=== PATIENT | male | born 1960 | race Caucasian/White ===

== ENCOUNTER → 2023-12-23 | Outpatient (CLI) | payer OTHER, SELFPAY ==
--- NOTE | 2023-12-23 | PROSBIL_PTH ---
PATHOLOGY RESULTS PATIENT: RANDALL HENDERSON LOC: [facility]#:[id number] AGE/SX: 63/M ROOM: RE12/23/[address]: Dr. Matthew Garcia MD : 1960 BED: DIS: 12/23/2023 SPEC #: [id number] RECD: 12/24/23 07:25 STATUS: VINCENZO ANN MARIE #: [id number] ZACK: 12/23/23 00:[address]: Matthew Garcia DEPT: SURGICAL PATHOLOGY RECD BY: Boone Martinez ENTERED: 12/24/23 07:26 SP TYPE: PROST BX GOKUL DR: Tiffanie Granda PA-C Tissues: PROSTATE RIGHT PROSTATE RIGHT PROSTATE RIGHT PROSTATE LEFT PROSTATE LEFT PROSTATE LEFT Procedures: PROSTATE BX HEADER OPERATION: Prostate biopsy PRE-OP DIAGNOSIS: Elevated PSA TISSUE SUBMITTED: A - Right apex, B - Right mid, C - Right base, D - Left apex, E - Left mid, F - Left base MICROSCOPIC DIAGNOSIS A. Right prostate, apex, core biopsy: Prostatic tissue, negative for malignancy. B. Right prostate, mid, core biopsy: Prostatic tissue, negative for malignancy. C. Right prostate, base, core biopsy: Prostatic tissue, negative for malignancy. D. Left prostate, apex, core biopsy: Prostatic adenocarcinoma. Gael grade: 4+4=8 Number of cores involved: 1/2 Proportion of tissue involved: ~20% Perineural invasion: Not identified. Greatest tumor length: 0.4 cm Focal high-grade prostatic intraepithelial neoplasia (HGPIN). E. Left prostate, mid, core biopsy: Prostatic tissue, negative for malignancy. Focal basal cell hyperplasia. F. Left prostate, base, core biopsy: Focal atypical small acinar proliferation (VARGHESE). Focal high-grade prostatic intraepithelial neoplasia (HGPIN). See comment. SJ:rg 12/25/2023 COMMENT F. Immunohistochemistry ([id number]) supports the above diagnosis. This case has been reviewed in consultation with Dr. Rodriguez who concurs with the above diagnosis. MICROSCOPIC DESCRIPTION Slides are reviewed. GROSS DESCRIPTION A - Received is one container designated prostate, right apex. The specimen consists of two elongated fragments of light santos-white soft tissue each measuring 1.2 cm in length and 0.1 cm in diameter. The specimen is totally submitted in one cassette. B - Received is one container designated prostate, right mid. The specimen consists of two elongated fragments of light santos-white soft tissue each measuring 1.2 cm in length and 0.1 cm in diameter. The specimen is totally submitted in one cassette. C - Received is one container designated prostate, right base. The specimen consists of two elongated fragments of light santos-white soft tissue each measuring 1.2 cm in length and 0.1 cm in diameter. The specimen is totally submitted in one cassette. D - Received is one container designated prostate, left apex. The specimen consists of two elongated fragments of light santos-white soft tissue each measuring 1.2 cm in length and 0.1 cm in diameter. The specimen is totally submitted in one cassette. E - Received is one container designated prostate, left mid. The specimen consists of two elongated fragments of light santos-white soft tissue measuring 0.6 and 1.8 cm in length and 0.1 cm in diameter. The specimen is totally submitted in one cassette. F - Received is one container designated prostate, left base. The specimen consists of two elongated fragments of light santos-white soft tissue each measuring 1.2 cm in length and 0.1 cm in diameter. The specimen is totally submitted in one cassette. / SJ:rg 12/24/2023 TC:0 CPT: 13096 x6
--- NOTE | 2023-12-23 | IMM_PTH ---
PATHOLOGY RESULTS PATIENT: RANDALL HENDERSON LOC: [facility] U#:[id number] AGE/SX: 63/M ROOM: RE12/23/[address]: Dr. Matthew Garcia MD : 1960 BED: DIS: 12/23/2023 SPEC #: [id number] RECD: 12/25/23 13:48 STATUS: VINCENZO REQ #: [id number] ZACK: 12/23/23 00:[address]: Matthew Garcia DEPT: IMMUNOHISTOCHEMISTRY RECD BY: Josi Enrique ENTERED: 12/25/23 13:49 SP TYPE: IMMUNO OTHR DR: Tiffanie Granda PA-C Tissues: PROSTATE LEFT Procedures: P40 (add) 34BE12 (initial) PHYSICIAN & INSTITUTION [place] [id number] SPECIMEN INFORMATION: Tissue Source: F - Left prostate, base Clinical Info: Elevated PSA Specimen Number: [id number] F CPT code: 79558, 39280 METHODOLOGY: Deparaffinized sections of prefer/formalin-fixed tissue or PAP/DQ stained slides are incubated with monoclonal/polyclonal antibodies/oligonucleotide probes. Localization is made via biotin free immunoperoxidase method. Appropriate controls are performed and reacted as expected. Results on target cell population are indicated in the following table: RESULTS: ANTIBODY / CLONE RESULT Block F 34BE12 (34BE12) negative * P40 (BC28) negative * *?Positive in the area of focal high-grade prostatic intraepithelial neoplasia (HGPIN). These tests were developed and their performance characteristics determined by [facility]. They may not have been cleared or approved by the U.S. Food and Drug Administration. The FDA has determined that such clearance or approval is not necessary. The above immunohistochemical/dualISH markers are ordered and reviewed by the Pathologist. INTERPRETATION: B. Left prostate, base, core biopsy: Focal atypical small acinar proliferation (VARGHESE). Focal high-grade prostatic intraepithelial neoplasia (HGPIN). SJ:kane 12/26/2023
== END | disposition home or self-care (01) ==
LOC: LAB 16:30 → LABSPEC 16:34
PROVIDERS: PCP Family Medicine; Referring Provider Urology; Visit Provider Urology
DX: R97.20 Elevated prostate specific antigen [PSA] (principal)
CPT/HCPCS: 88305; 88341; 88342; G0416

== ENCOUNTER 2024-01-22 08:31 | Day surgery (SDC) | payer OTHER, SELFPAY ==
--- OUTSIDE RECORDS SUMMARY | 2024-01-22 08:54 | XMS RPT_ITS | CCD ---
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 Name Role Phone HILLS, THERON Attending Unavailable HILLS, THERON Consulting Unavailable HILLS, THERON Primary Care Unavailable HILLS, THERON Admitting Unavailable PROVIDER, UNKNOWN Consulting Unavailable HOLCOMB, FANTASMA Attending Unavailable HOLCOMB, FANTASMA Primary Care Unavailable HOLCOMB, FANTASMA Admitting Unavailable HILLS, THERON Consulting Unavailable PROVIDER, UNKNOWN Consulting Unavailable [place], THERON Attending Unavailable [place], THERON Consulting Unavailable [place], THERON Admitting Unavailable [place], THERON Primary Care Unavailable PROVIDER, UNKNOWN Consulting Unavailable [place], THERON Attending Unavailable [place], THERON Consulting Unavailable [place], THERON Primary Care Unavailable [place], THERON Admitting Unavailable PROVIDER, UNKNOWN Consulting Unavailable [place], THERON Referring Unavailable ELSA SALDANA DO Attending Unavailable LES, ELSA DO Primary Care Unavailable ELSA SALDANA DO Admitting Unavailable HILLS, THERON Consulting Unavailable PROVIDER, UNKNOWN Consulting Unavailable HOLCOMB, FANTASMA Attending Unavailable HOLCOMB, FANTASMA Primary Care Unavailable HILLS, THERON Consulting Unavailable HOLCOMB, FANTASMA Admitting Unavailable PROVIDER, UNKNOWN Consulting Unavailable HOLCOMB, FANTASMA Admitting Unavailable HOLCOMB, FANTASMA Attending Unavailable HOLCOMB, FANTASMA Primary Care Unavailable HILLS, THERON Consulting Unavailable PROVIDER, UNKNOWN Consulting Unavailable HILLS, THERON Attending Unavailable HILLS, THERON Consulting Unavailable HILLS, THERON Primary Care Unavailable HILLS, THERON Admitting Unavailable PROVIDER, UNKNOWN Consulting Unavailable HILLS, THERON Attending Unavailable HILLS, THERON Consulting Unavailable HILLS, THERON Primary Care Unavailable HILLS, THERON Admitting Unavailable PROVIDER, UNKNOWN Consulting Unavailable HILLS, THERON Attending Unavailable HILLS, THERON Consulting Unavailable HILLS, THERON Primary Care Unavailable HILLS, THERON Admitting Unavailable PROVIDER, UNKNOWN Consulting Unavailable Allergies Allergy Classification Reported Allergen(s) Allergy Type Date of Onset Reaction(s) Facility (1 source) Acetaminophen / HYDROcodone Drug Allergy [facility] Repository (1 source) Sulfamethoxazole / Trimethoprim Drug Allergy [facility] Repository Problems Active Problems Problem Classification Problem Date Documented Da te Episodic/Chronic Cancer of prostate (3 sources) Malignant neoplasm of prostate; Translations: [Malignant neoplasm of prostate] Onset: 12-28-2023 Chronic Past or Other Problems Problem Classification Problem Date Documented Da te Episodic/Chronic Other screening for suspected conditions (not mental disorders or infectious disease) (6 sources) Elevated prostate specific antigen [PSA]; Translations: [Encounter for screening for malignant neoplasm of prostate] Onset: 09-29-2023 Episodic Other skin disorders (1 source) Other skin changes; Translations: [Other skin changes] Onset: 01-10-2023 Episodic Skin and subcutaneous tissue infections (1 source) Local infection of the skin and subcutaneous tissue, unspecified; Translations: [Local infection of the skin and subcutaneous tissue, unspecified] Onset: 01-10-2023 Episodic Results Test Name Value Interpretation Reference Range Facil ity Encounters Encounter Date Encounter Type Care Provider Facility Start: 01-03-2024 End: 01-03-2024 ambulatory [facility] Start: 12-30-2023 End: 12-31-2023 Emergency department patient visit [facility] Start: 12-28-2023 End: 12-28-2023 ambulatory [facility] Start: 12-27-2023 End: 12-27-2023 ambulatory [facility] Start: 10-06-2023 End: 10-06-2023 ambulatory [facility] Start: 09-29-2023 End: 09-29-2023 [facility] Start: 01-10-2023 End: 01-10-2023 ambulatory [facility] Procedures Date Procedure Procedure Detail Performing Clinician Start: 10-06-2023 PSA screening [facility] Payers Date Payer Category Payer Unknown [id number] 2.16.8 [id number] 1960 Unknown [id number] 2.16.8 [id number] 1960 Unknown [id number] 2.16.8 [id number] 1960 Unknown [id number] 2.16.8 [id number] 1960 Unknown [id number] 2.16.8 [id number] 1960 Unknown [id number] 2.16.8 [id number] 1960 Unknown [id number] 2.16.8 [id number] 1960 Unknown [id number] 2.16.8 [id number] 1960 Unknown [id number] 2.16.84 [id number] Private Health Insurance [id number] Clinical Note 01-21-2021 Note Date & Type Note Facility 01-21-2021 Note . MICRO - Microbiology PROCEDURE: Blood Culture (bacterial) [*1] SOURCE: Blood BODY SITE: COLLECTED DATE/TIME: 01/16/2021 00:20 EST RECEIVED DATE/TIME: 01/16/2021 06:45 EST START DATE/TIME: 01/16/2021 06:46 EST FREE TEXT SOURCE: FINAL REPORTS Final Report [] Verified Date/Time/Personnel: 01/21/2021 06:59 EST Blood Culture: No Growth at 5 days. PRELIMINARY REPORTS Preliminary Report [] Verified Date/Time/Personnel: 01/16/2021 07:59 EST Culture has been received in lab and is no growth to date. Routine cultures are held for 5 days. Performing Locations *1: This test was performed at: [facility], [address] [place] [address], [facility] , [facility] ([place]) Clinical Note 01-21-2021 Note Date & Type Note Facility 01-21-2021 Note . MICRO - Microbiology PROCEDURE: Blood Culture (bacterial) [*1] SOURCE: Blood BODY SITE: COLLECTED DATE/TIME: 01/16/2021 00:16 EST RECEIVED DATE/TIME: 01/16/2021 06:45 EST START DATE/TIME: 01/16/2021 06:46 EST FREE TEXT SOURCE: FINAL REPORTS Final Report [] Verified Date/Time/Personnel: 01/21/2021 06:59 EST Blood Culture: No Growth at 5 days. PRELIMINARY REPORTS Preliminary Report [] Verified Date/Time/Personnel: 01/16/2021 07:59 EST Culture has been received in lab and is no growth to date. Routine cultures are held for 5 days. Performing Locations *1: This test was performed at: [address], [address] [place] [address] ([place]) Clinical Note 01-18-2021 Note Date & Type Note Facility 01-18-2021 Note . MICRO - Microbiology PROCEDURE: Urine Culture [*1] SOURCE: Urine, Clean Catch BODY SITE: COLLECTED DATE/TIME: 01/16/2021 01:04 EST RECEIVED DATE/TIME: 01/16/2021 07:50 EST START DATE/TIME: 01/16/2021 07:50 EST FREE TEXT SOURCE: FINAL REPORTS Final Report [] Verified Date/Time/Personnel: 01/18/2021 07:51 EST No growth at 48 hours. PRELIMINARY REPORTS Preliminary Report [] Verified Date/Time/Personnel: 01/17/2021 11:00 EST No growth to date Performing Locations *1: This test was performed at: [address], [address] [place] [address] ([place]) Summary Purpose Family History No Family History Records FoundNo Family History Records FoundNo Family History Records FoundNo Family History Records Found Advance Directives No Advanced Directives Records FoundNo Advanced Directives Records FoundNo Advanced Directives Records FoundNo Advanced Directives Records Found Additional Source Comments (unrecognized sect ion and content) No Status Records FoundNo Status Records FoundNo Status Records FoundNo Status Records Found INFORMATION SOURCE (unrecogn ized section and content) DATE CREATED AUTHOR AUTHOR'S ORVILLE ATION 03/12/2021 [facility] ([place]) DATE CREATED AUTHOR AUTHOR'S ORVILLE ATION 03/14/2021 [facility] DATE CREATED AUTHOR AUTHOR'S ORVILLE ATION 01/08/[address] [facility] FOR RECORDS PERTAINING TO PATIENTS WHO ARE OR HAVE BEEN ENROLLED IN A CHEMICAL DEPENDENCY/SUBSTANCEABUSE PROGRAM, SOME INFORMATION MAY BE OMITTED. This clinical summary was aggregated from multiple sources. Caution should be exercised in using it in the provision of clinical care. This summary normalizes information from multiple sources, and as a consequence, information in this document may materially change the coding, format and clinical context of patient data. In addition, data may be omitted in some cases. CLINICAL DECISIONS SHOULD BE BASED ON THE PRIMARY CLINICAL RECORDS. [facility] [employer] [facility]. provides no warranty or guarantee of the accuracy or completeness of information in this document.
--- NOTE | 2024-01-22 09:01 | DCINST_ITS ---
Discharge Instructions Diet Discharge Diet: No restrictions Activity Discharge Activity: Return to Normal Activity and May Not Drive (while taking narcotic pain medications.) Dressing / Incision Call your doctor if you observe: Fever of 101 or Higher Follow Up Care Please Follow Up With: Matthew Garcia MD When: Call [phone] for an appointment Test Results: Test results from this visit will be discussed in further detail at your follow- up appointment, if applicable. Discharge Plan Admission Primary Reason for Your Visit: Gold markers and spacer gel Attending Provider: Matthew Garcia Primary Care Provider: Tiffanie Granda Discharge Orders/Prescriptions Prescriptions: New ciprofloxacin HCl [Cipro] 500 mg tablet 500 mg PO BID Qty: 10 0RF Continued hydrochlorothiazide 12.5 mg tablet 12.5 mg PO QHS albuterol sulfate 90 mcg/actuation HFA aerosol inhaler 2 puff inhalation Q4-6H PRN (Reason: shortness of breath or wheezing) aspirin [Adult Aspirin Regimen] 81 mg tablet,delayed release (DR/EC) 81 mg PO DAILY Fish Oil 300-500 mg capsule 1 cap PO DAILY metoprolol tartrate 25 mg tablet 25 mg PO QHS diclofenac potassium 50 mg tablet 50 mg PO QHS multivitamin Tablet 1 tab PO DAILY potassium 99 mg tablet 99 mg PO DAILY fluticasone propion-salmeterol 250-50 mcg/dose blister with device 1 inh INHALATION QHS Patient Comments: INHALE ONE PUFF TWICE DAILY omeprazole 20 mg capsule,delayed release(DR/EC) 20 mg PO QHS epinephrine 0.3 mg/0.3 mL auto-injector 0.3 ml subcut PRN PRN (Reason: anaphylaxis) Patient Comments: INJECT DIRECTED Referrals / Follow Up: Matthew Garcia MD [Med Staff - Active Staff] - Tiffanie Granda PA-C [Primary Care Provider] - Disposition Disposition (needs filled in before D/C Order can be placed): Home, Self Care
--- NOTE | 2024-01-22 09:01 | PCM.HP.STD ---
HPI - General General Date of Service: 01/22/24 Chief Complaint: Prostate cancer HPI Ania HENDERSON, is a 63 M who presents for placement of gold markers and spacer gel for prostate cancer plans to have radiation treatment for high risk disease [facility] Medical History (Updated 01/20/24 @ 15:22 by Leena De) Alcohol use Arthritis Asthma Cardiology follow-up encounter Chronic cough Elevated PSA Gastric reflux History of edema History of steroid therapy History of stress test HTN (hypertension) Leg cramps Prostate cancer Smoker Wears glasses Home Medications albuterol sulfate 90 mcg/actuation aerosol inhaler 2 puff inhalation Q4-6H PRN shortness of breath or wheezing 01/08/24 [History Last Taken Unknown] aspirin 81 mg tablet,delayed release (Adult Aspirin Regimen) 81 mg PO DAILY 01/08/24 [History Last Taken 01/13/24] diclofenac potassium 50 mg tablet 50 mg PO QHS 01/08/24 [History Last Taken Unknown] hydrochlorothiazide 12.5 mg tablet 12.5 mg PO QHS 01/08/24 [History Last Taken Unknown] metoprolol tartrate 25 mg tablet 25 mg PO QHS 01/08/24 [History Last Taken Unknown] omega-3 fatty acids-fish oil 300 mg-500 mg capsule (Fish Oil) 1 cap PO DAILY 01/08/24 [History Last Taken 01/13/24] multivitamin 1 tab PO DAILY 01/13/24 [History Last Taken Unknown] epinephrine 0.3 mg/0.3 mL injection, auto-injector 0.3 ml subcut PRN PRN anaphylaxis 01/20/24 [History Last Taken Unknown] fluticasone 250 mcg-salmeterol 50 mcg/dose blistr powdr for inhalation 1 inh inhalation QHS 01/20/24 [History Last Taken Unknown] omeprazole 20 mg capsule,delayed release 20 mg PO QHS 01/20/24 [History Last Taken Unknown] potassium 99 mg tablet 99 mg PO DAILY 01/20/24 [History Last Taken Unknown] ciprofloxacin HCl 500 mg tablet (Cipro) 500 mg PO BID #10 tabs 01/22/24 [Rx Last Taken Unknown] Allergy/AdvReac Type Severity Reaction Status Date / Time lisinopril Allergy Severe Angioedema Unverified 01/20/24 15:07 trimethoprim [From Bactrim] Allergy Unknown Other Unverified 01/20/24 15:07 acetaminophen [From Vicodin] AdvReac Intermediate Upset Unverified 01/20/24 15:07 Stomach sulfamethoxazole AdvReac Intermediate Other Verified 01/20/24 15:07 [From Bactrim] hydrocodone [From Vicodin] AdvReac Mild Upset Unverified 01/20/24 15:07 Stomach Surgical History (Updated 01/20/24 @ 15:22 by Leena De) History of cholecystectomy Hx of colonoscopy Hx of prostate biopsy Hx of tonsillectomy Social History Smoking Status: Current every day smoker tobacco type: cigarettes alcohol intake: current substance use type: does not use caffeine: Yes
[2024-01-22 09:04] VITALS: BP 167/98; PULSE 99; RESP 18; TEMP 37.1; O2SAT 98; BMI 32.2
[2024-01-22] MEDS: Lactated Ringers 1,000 ML 15 ML IV (09:15)
[2024-01-22] MEDS: Cefazolin 2 GM in 0.9% Normal Saline (100mL Bag) 100 ML IV (10:44)
--- NOTE | 2024-01-22 10:50 | OP.PCM_ITS ---
Report of Operation Date of Procedure: 01/22/24 Pre-Operative Diagnosis: Prostate cancer Post-Operative Diagnosis: The same Surgery/Procedure Performed:: Placement of gold markers and spacer gel Description of Surgical Findings:: In the preoperative area I reviewed with the patient how the procedure is done we talked about the risk of the procedure including the risk of infection, bleeding, migration of the spacer gel, the patient is planning to have radiation to the prostate he understands that the spacer gel has demonstrated benefit in reducing the risk of toxicity from the ration radiation to the rectum but there is no guarantees that this spacer gel will prevent any serious complications or toxicity to the rectum or bowels. After reviewing this with the patient and his family organ to proceed with placement of a spacer gel matrix. Patient was taken back to the operating room after smooth induction of anesthesia he was placed supine on the table. The genitals and perineum were prepped and draped in usual sterile fashion. I then introduced a biplanar ultrasound probe into the rectum and performed ultrasonography and identified the Denonvilliers' fascia the prostate mid base and apex and seminal vesicles. The spacer gel mix was then prepared on the back table per manufactures instruction. Under ultrasound guidance in the midline perineum a bevel needle down we advanced through the perineum below the prostate into the space of Denonvilliers' fascia. This space which could be identified by ultrasound with a bright white layer between the prostate and the rectum. I then injected a puff of normal saline to identify the space further. After I confirmed that the needle was in the correct space in the mid prostate and the space of Denonvilliers' fascia between the rectum and the prostate. Then over the course of 15 seconds the gel matrix was injected slowly there was nice separation between the prostate and the rectum at the gel matrix was injected. The penis and testicles were prepped and draped in usual sterile fashion, ultrasound probe was placed into the rectum and biplanar ultrasound was performed on the prostate. Identified the base mid and apex of the prostate identified the transition zone prostate. Then using a needle the first stone layout marker was placed into the right base of the prostate, the second stone layout marker was placed in the left base of the prostate, and the third core marker was placed in the right apex of the prostate after all 3 markers were placed the placement of the markers were confirmed by ultrasonography.The position of the gel matrix was confirmed by ultrasound. Then the injection needle was removed intact. Patient's perineum was cleaned patient was taken out of stirrups and then taken back to the PACU in good condition. Type of Anesthesia: General Admit VTE Documentation VTE Present on Admission: No VTE Mechan Device Prophylaxis: SCD's VTE Pharm Prophylaxis ordered?: No
[2024-01-22 11:10] VITALS: BP 156/94; BP 167/98; PULSE 75; RESP 16; TEMP 36.7; O2SAT 97
[2024-01-22 11:15] VITALS: BP 156/94; BP 167/98; PULSE 75; RESP 16; O2SAT 95
[2024-01-22 11:20] VITALS: BP 156/87; BP 167/98; PULSE 74; RESP 16; TEMP 36.7; O2SAT 94
[2024-01-22 11:41] VITALS: BP 167/98
== END 2024-01-22 11:46 | disposition home or self-care (01) ==
LOC: SDC 08:33 → AC 08:33
PROVIDERS: PCP Family Medicine; Referring Provider Urology; Visit Provider Urology
PROC: (CPT 55874; principal; 2024-01-22 10:35)
DX: C61 Malignant neoplasm of prostate (principal); F17.210 Nicotine dependence, cigarettes, uncomplicated; I10 Essential (primary) hypertension; J45.909 Unspecified asthma, uncomplicated; K21.9 Gastro-esophageal reflux disease without esophagitis; Z79.899 Other long term (current) drug therapy; Z79.82 Long term (current) use of aspirin
CPT/HCPCS: 55876; 55874; 00400; J7120; J2405

== ENCOUNTER → 2024-01-28 | Outpatient (CLI) | payer OTHER, SELFPAY ==
--- NOTE | 2024-01-28 07:31 | MRI_ITS ---
STUDY: MR PROSTATE GLAND/ PELVIS WITH T WITHOUT CONTRAST REASON FOR EXAM: Male, 63 years old. high risk prostate cancer -- eval for disease. Recent placement of prostate markers. TECHNIQUE: Standardized fat and water weighted pulse sequences were obtained in all 3 orthogonal planes, pre-and post contrast administration. IV 20ml clariscan was administered for the contrast portion of the examination. COMPARISON: CT of abdomen and pelvis dated January 28, 2024 Nuclear medicine bone scan dated January 03, 2024 FINDINGS: Prostate gland volume/size: 2.98 x 4.64 x 3.97 cm A 4.40 x 3.75 cm lobular fluid collection is present at the superior and posterior aspect of the prostate gland abutting the undersurface of the seminal vesicles, most likely representing postprocedural fluid collection or a slightly complex fluid collection resulting from extrusion from the prostate gland or sequela from an inflammatory or infectious process from the seminal vesicles or prostate gland. It does not appear to represent an abscess. Anterior fibromuscular stroma: Normal Peripheral zone: Diffusely heterogeneous. Low signal ovoid nodules in the inferior aspects of both the right and left peripheral zones has corresponding dark signal on ADC map and bright signal on the diffusion-weighted map suggesting malignancy. On the postcontrast study there is mild enhancement of the nodule in the medial inferior aspect and right side of the peripheral zone but none demonstrated on the left. Central zone: Diffusely heterogeneous and nodular and cystic. Diffuse enhancement on the postcontrast portion of the study. Prostatic hyperplasia favored. Transitional zone: Diffusely heterogeneous and nodular and cystic. Diffuse enhancement on the postcontrast portion of the study. Prostatic hyperplasia favored. Prostate capsule: Intact Seminal vesicles: The barrett of the seminal vesicles are moderately thickened and low signal suggesting sequela of chronic inflammation or prior infection. Malignant invasion is a possibility as well, although the fluid signal in the central aspect of the seminal vesicles is preserved and no mass is seen extending into the seminal vesicles from the prostate gland. Pelvic sidewall lymphadenopathy: Not present Bony structures: No visualized marrow edema or lytic or blastic lesions or infiltrative process. No abnormal enhancement of the bony structures is seen. Normal urinary bladder. No visualized bladder stones or masses or abnormal thickening of the bladder wall. Normal visualized small intestine. There are multiple colonic diverticula of the sigmoid colon consistent with chronic diverticulosis. There is no pelvic fluid. Normal abdominal wall. MRI/Pelvis W/WO Contrast IMPRESSION: 1. Peripheral zone: Diffusely heterogeneous. Low signal ovoid nodules in the inferior aspects of both the right and left peripheral zones has corresponding dark signal on ADC map and bright signal on the diffusion-weighted map suggesting malignancy. On the postcontrast study there is mild enhancement of the nodule in the medial inferior aspect and right side of the peripheral zone but none demonstrated on the left. 2. PI-RADS 4: high (clinically significant cancer is likely to be present) 3. Seminal vesicles: The barrett of the seminal vesicles are moderately thickened and low signal suggesting sequela of chronic inflammation or prior infection. Malignant invasion is a possibility as well, although the fluid signal in the central aspect of the seminal vesicles is preserved and no mass is seen extending into the seminal vesicles from the prostate gland. Reference information: Normal prostate tissue Benign prostatic hypertrophy cancer/tumor - low signal peripheral , transitional, and central zones malignancy appears as bright on DWI and low signal on ADC map Prostate imaging-reporting and data system (PI-RADS) PI-RADS 1: very low (clinically significant cancer is highly unlikely to be present) PI-RADS 2: low (clinically significant cancer is unlikely to be present) PI-RADS 3: intermediate (the presence of clinically significant cancer is equivocal) PI-RADS 4: high (clinically significant cancer is likely to be present) PI-RADS 5: very high (clinically significant cancer is highly likely to be present) PI-RADS X: component of exam technically inadequate or not performed Prostate malignancy distribution: Peripheral zone: 70-80% Transitional zone: 10-20% Central zone: 5% or less Electronically Signed: Evens Jack MD at 12:39 EDT Reading Location ID and State: [facility] / [place] , Service support ,
--- OUTSIDE RECORDS SUMMARY | 2024-01-28 07:46 | XMS RPT_ITS | CCD ---
Author Name Unknown Address [address] [place] [address] Organization [facility] Care Team Providers Care Yeast Maker Name Role Phone HILLS, THERON Attending Unavailable HILLS, THERON Consulting Unavailable HILLS, THERON Primary Care Unavailable HILLS, THERON Admitting Unavailable PROVIDER, UNKNOWN Consulting Unavailable HOLCOMB, FANTASMA Attending Unavailable HOLCOMB, FANTASMA Primary Care Unavailable HOLCOMB, FANTASMA Admitting Unavailable CATAWBA, THERON Consulting Unavailable PROVIDER, UNKNOWN Consulting Unavailable CATAWBA, THERON Attending Unavailable CATAWBA, THERON Consulting Unavailable CATAWBA, THERON Admitting Unavailable CATAWBA, THERON Primary Care Unavailable PROVIDER, UNKNOWN Consulting Unavailable CATAWBA, THERON Attending Unavailable CATAWBA, THERON Consulting Unavailable CATAWBA, THERON Primary Care Unavailable CATAWBA, THERON Admitting Unavailable PROVIDER, UNKNOWN Consulting Unavailable CATAWBA, THERON Referring Unavailable ELSA SALDANA DO Attending [...] (1 source) Acetaminophen / HYDROcodone Drug Allergy [facility] Repository (1 source) Sulfamethoxazole / Trimethoprim Drug Allergy [facility] Repository Problems Active Problems Problem Classification [...] Provider Facility Start: 01-03-2024 End: 01-03-2024 ambulatory [facility] Start: 12-30-2023 End: 12-31-2023 Emergency department patient visit [facility] Start: 12-28-2023 End: 12-28-2023 ambulatory [facility] Start: 12-27-2023 End: 12-27-2023 ambulatory [facility] Start: 10-06-2023 End: 10-06-2023 ambulatory [facility] Start: 09-29-2023 End: 09-29-2023 [facility] Start: 01-10-2023 End: 01-10-2023 ambulatory [facility] Procedures Date Procedure Procedure Detail Performing Clinician Start: 10-06-2023 PSA screening [facility] Payers Date Payer Category Payer Unknown [id number] 2.16.8 [id number] 1960 Unknown [id number] 2.16.8 [id number] 1960 Unknown [id number] 2.16.8 [id number] 1960 Unknown [id number] 2.16.8 [id number] 1960 Unknown [id number] 2.16.8 [id number] 1960 Unknown [id number] 2.16.8 [id number] 1960 Unknown [id number] 2.16.8 [id number] 1960 Unknown [id number] 2.16.8 [id number] 1960 Unknown [id number] 2.16.84 [id number] Private Health Insurance [id number] Clinical Note 01-21-2021 Note Date & Type [...] Locations *1: This test was performed at: [facility], [address] [place] [address], [facility] , [facility] ([place]) Clinical Note 01-21-2021 Note Date & Type [...] Locations *1: This test was performed at: [address], [address] [place] [address] ([place]) Clinical Note 01-18-2021 Note Date & Type [...] Locations *1: This test was performed at: [address], [address] [place] [address] ([place]) Summary Purpose Family History No Family History [...] DATE CREATED AUTHOR AUTHOR'S ORVILLE ATION 03/12/2021 [facility] ([place]) DATE CREATED AUTHOR AUTHOR'S ORVILLE ATION 03/14/2021 [facility] DATE CREATED AUTHOR AUTHOR'S ORVILLE ATION 01/08/2024 [facility] FOR RECORDS PERTAINING TO PATIENTS WHO [...] BE BASED ON THE PRIMARY CLINICAL RECORDS. [facility] [employer] [facility]. provides no warranty or guarantee of the accuracy or completeness of information in this document.
[2024-01-28 08:28] LABS: CREATININE FINGERSTICK < 1.0 mg/dL (0.70-1.30); EGFR FINGERSTICK > 60.0000 mL/min (>60)
== END | disposition home or self-care (01) ==
LOC: MRI 07:25
PROVIDERS: PCP Family Medicine; Referring Provider Student in an Organized Health Care Education/Training Program; Visit Provider Student in an Organized Health Care Education/Training Program
DX: C61 Malignant neoplasm of prostate (principal)
CPT/HCPCS: 72197; A9575